=== PATIENT | female | born 1975 | race African-American/Black ===

== ENCOUNTER 2025-05-31 11:43 | Emergency (ER) | payer BC ==
[2025-05-31] MEDS: IPRATROPIUM-ALBUTEROL 3 ML NEB INHALATION STA (12:09)
[2025-05-31] MEDS: SODIUM CHLORIDE 0.9% 1,000 ML IV ONE (12:18)
[2025-05-31] MEDS: diphenhydrAMINE 50 MG/ML 1 ML VIAL IVP STA (12:18)
[2025-05-31] MEDS: FAMOTIDINE 20 MG/2 ML VIAL IV STA (12:19)
[2025-05-31] MEDS: methylPREDNISolone SOD SUCCI 40 MG/ML 1 ML VIAL IV STA (12:21)
[2025-05-31 12:23] LABS: Basophils # (A) 0.06 10*3/uL (0.00-0.10); Basophils % (A) 0.4 %; Eosinophils # (A) 0.27 10*3/uL (0.04-0.35); Eosinophils % (A) 1.9 %; HCT 30.2 % (37.2-46.3); HGB 9.0 g/dL (12.0-15.0); Lymphocytes # (A) 2.23 10*3/uL (0.90-5.00); Lymphocytes % (A) 15.3 %; MCH 21.7 pg (27.0-32.0); MCHC 29.8 g/dL (32.0-37.0); MCV 72.9 fL (80.0-97.0); Monocytes # (A) 0.31 10*3/uL (0.20-1.00); Monocytes % (A) 2.1 %; Neutrophils # (A) 11.63 10*3/uL (1.80-7.70); Neutrophils % (A) 80.0 %; Platelet Count 578 10*3/uL (140-440); RBC 4.14 10*6/uL (4.10-5.20); RDW 20.7 % (11.5-14.5); WBC 14.54 10*3/uL (4.50-10.00)
[2025-05-31 12:37] VITALS: RESP 18
[2025-05-31 12:54] LABS: ALT 11 U/L (4-34); AST 20 U/L (14-36); African American GFR (CKD) >90 (>60 ml/min/1.73 sqM); Albumin 4.5 g/dL (3.5-5.0); Alkaline Phosphatase 133 U/L (38-126); Anion Gap 11 mmol/L; Blood Urea Nitrogen 12 mg/dL (7-17); Calcium 10.7 mg/dL (8.4-10.2); Carbon Dioxide 25 mmol/L (22-30); Chloride 108 mmol/L (98-107); Glucose 119 mg/dL (74-99); Magnesium 1.8 mg/dL (1.6-2.3); Non-African American GFR(CKD) >90 (>60 ml/min/1.73 sqM); Potassium 4.4 mmol/L (3.5-5.1); Sodium 144 mmol/L (137-145); Total Protein 9.1 g/dL (6.3-8.2)
--- NOTE | 2025-05-31 13:41 | XR ---
EXAMINATION TYPE: XR chest 1V portable DATE OF EXAM: 05/31/2025 1:06 PM COMPARISON: Chest radiographs from 10/30/2024. CLINICAL INDICATION: Female, 49 years old with history of dyspnea; [facility] TECHNIQUE: XR chest 1V portable Frontal view of the chest. FINDINGS: Lungs/Pleura: There is no evidence of pleural effusion, focal consolidation, or pneumothorax. Pulmonary vascularity: Unremarkable. Heart/mediastinum: Cardiomediastinal silhouette is unremarkable. Musculoskeletal: No acute osseous pathology. IMPRESSION: No acute cardiopulmonary disease/process. [facility], , 05/31/2025 1:39 PM
--- NOTE | 2025-05-31 14:10 | ED ---
General Adult HPI - General Chief complaint: Allergic Reaction Stated complaint: shortness of breath Time Seen by Provider: 05/31/25 12:00 Source: patient, RN notes reviewed, old records reviewed Mode of arrival: ambulatory Limitations: no limitations - History of Present Illness Initial comments: 49-year-old female presents emergency department for an allergic reaction. Patient was receiving a iron transfusion when shortly after it was connected she began experiencing worsening shortness of breath and some chest tightness. Was disconnected, given Solu-Medrol as well as Benadryl and transferred to the ER for further care. She is still complaining of some shortness of breath. Denies any fevers or coughing. Denies abdominal pain or nausea or vomiting. Denies diaphoresis. Denies any rashes. No known allergic reactions. Presents for further evaluation at this time. - Related Data Home Medications Medication Instructions Recorded Confirmed Ergocalciferol (Vitamin D2) 1,250 mcg PO FR 05/31/25 05/31/25 [Drisdol (GEQ) 1,250 MCG (50,000 IU)] Levothyroxine Sodium [Synthroid] 100 mcg PO DAILY 05/31/25 05/31/25 amLODIPine [Norvasc] 10 mg PO DAILY 05/31/25 05/31/25 Previous Rx's Medication Instructions Recorded Albuterol Inhaler [Ventolin Hfa 2 puff INHALATION QID #8 gm 05/31/25 Inhaler] Famotidine [Pepcid] 20 mg PO DAILY 7 Days #7 tablet 05/31/25 Ibuprofen 800 mg PO Q8H PRN 7 Days #21 tab 05/31/25 predniSONE [Deltasone] 40 mg PO DAILY 5 Days #10 tab 05/31/25 Allergies Allergy/AdvReac Type Severity Reaction Status Date / Time ferumoxytol [From Feraheme] Allergy Chest Pain Verified 05/31/25 13:27 lisinopril Allergy Unknown Verified 05/31/25 13:27 Review of Systems ROS Statement: Those systems with pertinent positive or pertinent negative responses have been documented in the HPI. Review of Systems: CONST: Denies fever EYES: Denies blurry vision ENT: Denies nasal congestion C/V: Denies Chest pain RESP: Endorses shortness of breath GI: Denies abdominal pain : Denies dysuria SKIN: Denies rash. MSK: Denies joint pain. NEURO: Denies headache ROS Other: All systems not noted in ROS Statement are negative. Past Medical History Past Medical History: Asthma, COPD, Hypertension Additional Past Medical History / Comment(s): arthritis History of Any Multi-Drug Resistant Organisms: None Reported Past Surgical History: Appendectomy, Section, Cholecystectomy, Hernia Repair Additional Past Surgical History / Comment(s): 3 c-sections Past Anesthesia/Blood Transfusion Reactions: No Reported Reaction Past Psychological History: No Psychological Hx Reported Smoking Status: Former smoker, Vaper Past Alcohol Use History: Occasional Past Drug Use History: None Reported - Past Family History Mother Family Medical History: Cancer Additional Family Medical History / Comment(s): Vulva Cancer Brother(s) Family Medical History: Seizure Disorder General Exam - General Exam Comments Initial Comments: General: Appears mildly anxious. HEAD: Normal with no signs of head trauma. EYES: PERRLA, EOMI, conjunctiva normal, no discharge. ENT: Hearing grossly intact, normal oropharynx. No stridor. Posterior oropharynx within normal limits. Uvula midline. Tolerating oral secretions. RESPIRATORY: Reduced breath sounds bilaterally with mild increased work of breathing. Mild hypoxia on room air. Wheezing bilaterally. C/V: Regular rate and rhythm. S1 and S2 auscultated, peripheral pulses 2+ and intact throughout ABD: Abd is soft, nontender, nondistended EXT: Normal range of motion, no obvious deformity SKIN: No rashes or lesions observed on exposed skin. No evidence of rash. NEURO: Alert and orient x 4. Limitations: no limitations Course Vital Signs 05/31/25 05/31/25 05/31/25 11:46 12:08 12:11 Temperature 98 F Pulse Rate 98 86 82 Respiratory 20 18 Rate Blood Pressure 193/105 161/91 O2 Sat by Pulse 93 L 98 Oximetry 05/31/25 05/31/25 05/31/25 12:14 12:24 12:36 Temperature Pulse Rate 96 93 Respiratory 20 18 Rate Blood Pressure 160/89 O2 Sat by Pulse 98 Oximetry 05/31/25 05/31/25 05/31/25 13:31 14:02 14:23 Temperature 98.2 F Pulse Rate 89 91 94 Respiratory 18 18 18 Rate Blood Pressure 160/85 139/79 145/93 O2 Sat by Pulse 97 98 97 Oximetry Medical Decision Making - Medical Decision Making Was pt. sent in by a medical professional or institution (KIMI Richards, MEDICAL ADMINISTRATIVE, urgent care, hospital, or assisted...) When possible be specific @ -No Did you speak to anyone other than the patient for history (EMS, parent, family, police, friend...)? What history was obtained from this source @ -No Did you review nursing and triage notes (agree or disagree)? Why? @ -I reviewed and agree with nursing and triage notes Were old charts reviewed (outside hosp., previous admission, EMS record, old EKG, old radiological studies, urgent care reports/EKG's, assisted records)? Report findings @ -No old charts were reviewed Differential Diagnosis (chest pain, altered mental status, abdominal pain women, abdominal pain men, vaginal bleeding, weakness, fever, dyspnea, syncope, h eadache, dizziness, GI bleed, back pain, seizure, CVA, palpatations, mental health, musculoskeletal)? @ -Allergic reaction, asthma exacerbation, anaphylaxis. This list is not inclusive. EKG interpreted by me (3pts min.). @ -As above X-rays interpreted by me (1pt min.). @ -Chest x-ray reveals no obvious acute cardiopulmonary process. CT interpreted by me (1pt min.). @ -None done U/S interpreted by me (1pt. min.). @ -None done What testing was considered but not performed or refused? (CT, X-rays, U/S, labs)? Why? @ -None What meds were considered but not given or refused? Why? @ -None Did you discuss the management of the patient with other professionals (professionals i.e. KIMI Richards, MEDICAL ADMINISTRATIVE, lab, RT, psych nurse, health and social care teacher, rehab services aide, teacher, chief lifestyle officer, casework specialist)? Give summary @ -I updated patient's surgeon/physician Dr. Ledesma about what happened and she was fine with plan for outpatient follow-up and discharge. Was smoking cessation discussed for >3mins.? @ -No Was critical care preformed (if so, how long)? @ -No Were there social determinants of health that impacted care today? How? (Homelessness, low income, unemployed, alcoholism, drug addiction, transporta tion, low edu. Level, literacy, decrease access to med. care, shelter, rehab)? @ -No Was there de-escalation of care discussed even if they declined (Discuss DNR or withdrawal of care, Hospice)? DNR status @ -No What co-morbidities impacted this encounter? (DM, HTN, Smoking, COPD, CAD, Cancer, CVA, ARF, Chemo, Hep., AIDS, mental health diagnosis, sleep apnea, morbid obesity)? @ -Asthma Was patient admitted / discharged? Hospital course, mention meds given and route, prescriptions, significant lab abnormalities, going to OR and other pertinent info. @ -Based on patient's presentation and physical exam, patient presents emergency department complaining of allergic reaction to iron transfusions. Patient seems to have had an asthma exacerbation after initiation of the iron transfusion. Patient already received Solu-Medrol and I will administer Benadryl as well as famotidine IV. She also received IV fluids. Basic labs will be obtained. Patient be given a DuoNeb breathing treatment and we will obtain chest x-ray and screening EKG. Patient was in agreement this plan. Chest x-ray unremarkable. EKG unremarkable. Labs are remarkable for mild leukocytosis of 14 which is likely reactive. Patient has chronic anemia with hemoglobin of 9 which is chronic for the patient. Remainder the labs unremarkable. On reevaluation, wheezing has resolved. Is resting comfortably at this time. No symptoms. She is off oxygen. Vitals within acceptable limits. I spoke with the patient and I would like to observe her for at least 2 hours here in the department and she was in agreement this plan. After over 2-hour observation here in the department, patient has not required readministration of any medications. Patient will be discharged home at this time. She will be given prescription for prednisone, famotidine, albuterol inhaler. I will provide the patient with a prescription for prednisone, ibuprofen, albuterol inhaler, famotidine. I instructed the patient to follow up with their PCP in the next 1-3 days. I explained that the patient should return to the emergency department if they experience any worsening symptoms. Strict return precautions were discussed with the patient. The patient expressed understanding of these instructions. I answered all questions that the patient had. The patient was discharged home in good condition with their prescriptions and follow up information. Undiagnosed new problem with uncertain prognosis? @ -No Drug Therapy requiring intensive monitoring for toxicity (Heparin, Nitro, Insulin, Cardizem)? @ -No Were any procedures done? @ -No Diagnosis/symptom? @ -Default Acute, or Chronic, or Acute on Chronic? @ -Default Uncomplicated (without systemic symptoms) or Complicated (systemic symptoms)? @ -Default Side effects of treatment? @ -No Exacerbation, Progression, or Severe Exacerbation? @ -No Poses a threat to life or bodily function? How? (Chest pain, USA, SC, pneumonia, PE, COPD, DKA, ARF, appy, cholecystitis, CVA, Diverticulitis, Homicidal, Suicidal, threat to staff... and all critical care pts) @ -No - Lab Data Result diagrams: 05/31/25 12:11 05/31/25 12:11 Lab Results 05/31/25 05/31/25 Range/Units 12:11 12:11 WBC 14.54 H (4.50-10.00) 10*3/uL RBC 4.14 (4.10-5.20) 10*6/uL Hgb 9.0 L (12.0-15.0) g/dL Hct 30.2 L (37.2-46.3) % MCV 72.9 L (80.0-97.0) fL MCH 21.7 L (27.0-32.0) pg MCHC 29.8 L (32.0-37.0) g/dL Plt Count 578 H (140-440) 10*3/uL MPV 8.8 L (9.5-12.2) fL Immature Gran % (Auto) 0.3 % Neutrophils % 80.0 % Lymphocytes % 15.3 % Monocytes % 2.1 % Eosinophils % 1.9 % Basophils % 0.4 % Immature Gran # 0.04 (0.00-0.04) 10*3/uL Neutrophils # 11.63 H (1.80-7.70) 10*3/uL Lymphocytes # 2.23 (0.90-5.00) 10*3/uL Monocytes # 0.31 (0.20-1.00) 10*3/uL Eosinophils # 0.27 (0.04-0.35) 10*3/uL Basophils # 0.06 (0.00-0.10) 10*3/uL Sodium 144 (137-145) mmol/L Potassium 4.4 (3.5-5.1) mmol/L Chloride 108 H (98-107) mmol/L Carbon Dioxide 25 (22-30) mmol/L Anion Gap 11 mmol/L BUN 12 (7-17) mg/dL Creatinine 0.66 (0.52-1.04) mg/dL Est GFR (CKD-EPI)AfAm >90 (>60 ml/min/1.73 sqM) Est GFR (CKD-EPI)NonAf >90 (>60 ml/min/1.73 sqM) Glucose 119 H (74-99) mg/dL Calcium 10.7 H (8.4-10.2) mg/dL Magnesium 1.8 (1.6-2.3) mg/dL Total Bilirubin 0.9 (0.2-1.3) mg/dL AST 20 (14-36) U/L ALT 11 (4-34) U/L Alkaline Phosphatase 133 H (38-126) U/L Total Protein 9.1 H (6.3-8.2) g/dL Albumin 4.5 (3.5-5.0) g/dL - EKG Data -: EKG Interpreted by Me EKG Comments: 12-lead Electrocardiogram Interpretation Note EKG was reviewed and interpreted by myself. 12-lead ECG performed at 1200 is interpreted by me as revealing normal sinus rhythm at a rate of 91 beats per minute. [place] is normal. SC interval is 159 ms, QRS duration 73 ms, QTc is 380 ms.. There were no ST or T wave abnormalities to suggest myocardial ischemia or injury. R wave progression across the precordium was satisfactory. By my interpretation this EKG is non-diagnostic for acute ischemia. Disposition Clinical Impression: Allergic reaction, Asthma Disposition: HOME SELF-CARE Condition: Good Instructions (If sedation given, give patient instructions): Asthma (ED), General Allergic Reaction (ED) Prescriptions: predniSONE [Deltasone] 40 mg PO DAILY 5 Days #10 tab Ibuprofen 800 mg PO Q8H PRN 7 Days #21 tab PRN Reason: Pain Famotidine [Pepcid] 20 mg PO DAILY 7 Days #7 tablet Albuterol Inhaler [Ventolin Hfa Inhaler] 2 puff INHALATION QID #8 gm Is patient prescribed a controlled substance at d/c from ED?: No Referrals: Fran Palomo DO [Primary Care Provider] - 1-2 days Time of Disposition: 14:10
[2025-05-31 14:25] VITALS: BP 145/93; PULSE 94; TEMP 98.2
== END 2025-05-31 14:25 | disposition home or self-care (01) ==
LOC: EC 11:43
DX: T78.40XA Allergy, unspecified, initial encounter (principal); J45.909 Unspecified asthma, uncomplicated; F17.290 Nicotine dependence, other tobacco product, uncomplicated; Z88.8 Allergy status to other drugs, medicaments and biological substances
CPT/HCPCS: 36415; 94640; 93005; 80053; 83735; 85025; 71045; 99284; 96374; 96375; 96361 ×2; J1200; J1308